=== PATIENT | male | born 1995 | race Caucasian/White ===

== ENCOUNTER 2019-06-17 22:45 | Emergency (ER) | payer OTHER ==
[~2019-06-17] VITALS: Ht 182.9 cm; Wt 99.8 kg
[2019-06-17 23:08] VITALS: Ht 182.9 cm; Wt 99.8 kg
[2019-06-18 00:58] VITALS: BP 135/76
== END 2019-06-18 00:58 | disposition home or self-care (01) ==
LOC: ED 22:45
DX: S01.311A Laceration without foreign body of right ear, initial encounter (principal); W22.8XXA Striking against or struck by other objects, initial encounter; Y93.66 Activity, soccer; Y92.322 Soccer field as the place of occurrence of the external cause; Y99.8 Other external cause status
CPT/HCPCS: J2001

== ENCOUNTER 2019-08-12 01:20 | Emergency (ER) | payer OTHER ==
[~2019-08-12] VITALS: Ht 185.4 cm; Wt 99.8 kg
[2019-08-12 01:25] VITALS: Ht 185.4 cm; Wt 99.8 kg
[2019-08-12 02:30] VITALS: BP 124/66
== END 2019-08-12 02:30 | disposition home or self-care (01) ==
LOC: ED 01:20
DX: M25.562 Pain in left knee (principal)